=== PATIENT | male | born 1990 | race Caucasian/White ===

== ENCOUNTER → 2021-12-24 | Outpatient (CLI) | payer SELFPAY | LOC: M RAD 12:13 | PROVIDERS: ATTEND Physician Assistant Medical | DX: S99.921A Unspecified injury of right foot, initial encounter (principal) ==

== ENCOUNTER → 2023-04-17 | Outpatient (CLI) | payer OTHER | LOC: M PLAIMG 10:27 | PROVIDERS: ATTEND Physician Assistant | DX: M79.671 Pain in right foot (principal); S92.351D Displaced fracture of fifth metatarsal bone, right foot, subsequent encounter for fracture with routine healing; M85.471 Solitary bone cyst, right ankle and foot ==